=== PATIENT | female | born 1995 | race Caucasian/White ===

== ENCOUNTER 2019-07-14 19:41 | Emergency (ER) | payer BC ==
[2019-07-14 20:19] LABS: Urine Blood 2+ (NEG); Urine Glucose NEGATIVE (NEG); Urine Protein NEGATIVE (NEG)
[2019-07-14 20:30] LABS: Absolute Lymphocytes (CBC) 3.5 K/uL (0.7-4.9); Basophils % 0.8 % (0-1.3); Lymphocytes % 34.2 % (15.3-44.8); MPV 7.6 fL (7.6-11.3)
[2019-07-14 20:49] LABS: BUN Blood Urea Nitrogen 7 mg/dL (7-18); Bicarbonate 25 mmol/L (21-32); Glucose Level 106 mg/dL (74-106); Potassium 3.2 mmol/L (3.5-5.1); Sodium Level 139 mmol/L (136-145)
[2019-07-14 21:05] LABS: HCG, Quantitative 88238 mIU/mL (1-3)
--- NOTE | 2019-07-14 21:48 | ER ---
Nurse's Notes [facility] Name: Kristi Beauchamp Age: 23 yrs Sex: Female : 1995 Arrival Date: 07/14/2019 Time: 19:41 Bed 19 Private MD: Diagnosis: Threatened Presentation: 07/13 19:49 Chief complaint: Patient states: 14 weeks . Started vaginal bleeding today that ll1 was bright red and moderate amount. Has had dark vaginal bleeding int. 2-3 times throughout this . G2, P1. Coronavirus screen: Proceed with normal triage. Patient denies a cough. Patient denies shortness of breath or difficulty breathing. Patient denies measured and/or subjective temperature greater than 100.4F prior to today's visit. Patient denies travel on a cruise ship or to a country the [facility] currently lists as an affected area. Patient denies contact with known and/or suspected case of COVID-19. Ebola Screen: Patient denies travel to an Ebola-affected area in the 21 days before illness onset. Initial Sepsis Screen: Does the patient meet any 2 criteria? HR > 90 bpm. No. Patient's initial sepsis screen is negative. Does the patient have a suspected source of infection? No. Patient's initial sepsis screen is negative. Risk Assessment: Do you want to hurt yourself or someone else? Patient reports no desire to harm self or others. Onset of symptoms was July 13, 2019. 19:49 Method Of Arrival: Ambulatory ll1 19:49 Acuity: HERB 3 ll1 MFTS: 20:05 2, Full Term 1, Living 1, Verified cp Historical: - Allergies: 19:51 Lidocaine; ll1 - PMHx: 19:56 Asthma; - Immunization history:: Adult Immunizations up to date, Flu vaccine is not up to date. - Social history:: Patient uses alcohol, only on a social basis. before she was . Patient/guardian denies using street drugs, tobacco products, Smoking status: Patient denies any tobacco usage or history of. Screenin:53 Abuse screen: Denies threats or abuse. Nutritional screening: No deficits noted. Tuberculosis screening: No symptoms or risk factors identified. Fall Risk None identified. Assessment: 20:05 General: Appears in no apparent distress. Behavior is cooperative, crying. Pain: Denies pain. Neuro: Level of Consciousness is awake, alert, Oriented to person, place, time, situation. Cardiovascular: Heart tones S1 S2 present. Respiratory: Airway is patent Respiratory effort is even, unlabored, Respiratory pattern is Breath sounds are clear. GI: Bowel sounds present X 4 quads. Patient currently denies abdominal pain, diarrhea, vomiting. : No signs and/or symptoms were reported regarding the genitourinary system. Denies burning with urination. EENT: No signs and/or symptoms were reported regarding the EENT system. Derm: No signs and/or symptoms reported regarding the dermatologic system. Musculoskeletal: No signs and/or symptoms reported regarding the musculoskeletal system. 20:33 Reassessment: Pt is approx 15 weeks . She denies any abdominal pain. She states that she has been spotting off and on and today had bright red blood. She denies vomiting or diarrhea. No needs voiced at this time. 21:00 Reassessment: Marketing Analytics Lead in room performing ultrasound at this time. 22:15 Reassessment: Discharge instructions given to Pt. Educated Pt on the importance of pelvic rest and following up with her MFTS.Pt voiced understanding. 22:16 Reassessment: Potassium given to Pt PO at this time.Pt tolerated well. Vital Signs: 19:49 BP 129 / 83; Pulse 102; Resp 18; Temp 98.5; Pulse Ox 100% ; Pain 0/10; ll1 ED Course: 19:41 Patient arrived in ED. ag3 19:43 Dominick Tellez PA is PHCP. cp 19:43 Magdy Avalos MD is Attending Physician. cp 19:46 Suzette Ann, KAILEY is Primary Nurse. 19:51 Triage completed. ll1 19:52 Arm band placed on Patient placed in an exam room, on a stretcher. ll1 19:54 Patient has correct armband on for positive identification. Bed in low position. Call light in reach. 20:15 Inserted saline lock: 20 gauge in right antecubital area, using aseptic technique. 21:40 US Transvaginal Ob In Process Unspecified. EDMS 22:15 IV discontinued, intact, bleeding controlled, No redness/swelling at site. Pressure dressing applied. 22:19 No provider procedures requiring assistance completed. Administered Medications: 21:54 Drug: Potassium Effervescent Tablet 50 mEq Route: PO; 22:22 Follow up: Response: No adverse reaction Outcome: 21:48 Discharge ordered by . ned 22:15 Discharged to home ambulatory. 22:15 Condition: good 22:15 Discharge instructions given to patient, Instructed on discharge instructions, follow up and referral plans. medication usage, Demonstrated understanding of instructions, follow-up care, medications. 22:23 Patient left the ED. Signatures: Dispatcher [employer] EDMS Dominick Tellez PA PA cp Gomez, Alice 3 Suzette Ann, RN RN Tere Alvarez RN RN ll1
--- NOTE | 2019-07-14 21:49 | EDPHYS ---
Physician Documentation [facility] Name: Kristi Beauchamp Age: 23 yrs Sex: Female : 1995 Arrival Date: 07/14/2019 Time: 19:41 Bed 19 Private MD: ED Physician Magdy Avalos HPI: 07/13 20:05 This 23 yrs old Female presents to ER via Ambulatory with complaints of 15 cp Weeks , Vaginal Bleeding. 20:05 The patient presents to the emergency department with vaginal bleeding, that is light. cp 20:05 The estimated gestational age is 15 weeks. course: care: private OB cp physician, Leakage of Fluid: none appreciated. 20:05 Associated signs and symptoms: Pertinent negatives: abdominal pain, dysuria, fever, cp vomiting. RN UROLOGY: 20:05 2, Full Term 1, Living 1, Verified cp Historical: - Allergies: 19:51 Lidocaine; ll1 - PMHx: 19:56 Asthma; ah - Immunization history:: Adult Immunizations up to date, Flu vaccine is not up to date. - Social history:: Patient uses alcohol, only on a social basis. before she was . Patient/guardian denies using street drugs, tobacco products, Smoking status: Patient denies any tobacco usage or history of. ROS: 20:10 Constitutional: Negative for body aches, chills, fever, poor PO intake. cp 20:10 Eyes: Negative for injury, pain, redness, and discharge. cp 20:10 ENT: Negative for drainage from ear(s), ear pain, sore throat, difficulty swallowing, difficulty handling secretions. 20:10 Cardiovascular: Negative for chest pain. 20:10 Respiratory: Negative for cough, shortness of breath, wheezing. 20:10 Abdomen/GI: Negative for abdominal pain, nausea, vomiting, and diarrhea, constipation. 20:10 : Positive for vaginal bleeding, Negative for urinary symptoms. 20:10 All other systems are negative. Exam: 20:15 Constitutional: The patient appears in no acute distress, alert, awake, non-toxic, well cp developed, well nourished. 20:15 Head/Face: Normocephalic, atraumatic. cp 20:15 Eyes: Periorbital structures: appear normal, Conjunctiva: normal, no exudate, no injection, Sclera: no appreciated abnormality, Lids and lashes: appear normal, bilaterally. 20:15 ENT: External ear(s): are unremarkable, Nose: is normal, Posterior pharynx: Airway: no evidence of obstruction, patent. 20:15 Chest/axilla: Inspection: normal. 20:15 Cardiovascular: Rate: tachycardic, Rhythm: regular. 20:15 Respiratory: the patient does not display signs of respiratory distress, Respirations: normal, no use of accessory muscles, no retractions, labored breathing, is not present, Breath sounds: are clear throughout, no decreased breath sounds. 20:15 Abdomen/GI: Inspection: gravid appearance, is noted, Bowel sounds: active, all quadrants, Palpation: abdomen is soft and non-tender, in all quadrants, rebound tenderness, is not appreciated, voluntary guarding, is not appreciated, involuntary guarding, is not appreciated. 20:15 Back: pain, is absent, ROM is normal. Vital Signs: 19:49 BP 129 / 83; Pulse 102; Resp 18; Temp 98.5; Pulse Ox 100% ; Pain 0/10; ll1 MDM: 19:47 Patient medically screened. cp 20:15 Differential diagnosis: STD, threatened Ab, inevitable Ab, complete Ab, ectopic cp . 21:47 Data reviewed: vital signs, nurses notes, lab test result(s), radiologic studies, cp ultrasound. 21:47 Counseling: I had a detailed discussion with the patient and/or guardian regarding: the cp historical points, exam findings, and any diagnostic results supporting the discharge/admit diagnosis, lab results, radiology results, the need for outpatient follow up, an OB/Gyne specialist, to return to the emergency department if symptoms worsen or persist or if there are any questions or concerns that arise at home. Response to treatment: the patient's symptoms have mildly improved after treatment, and as a result, I will discharge patient. ED course: VSS. Discussed results of labs and US. Will discharge to home for continued monitoring. 07/13 19:58 Order name: Quantitative Hcg; Complete Time: 21:12 07/13 21:12 Interpretation: HCGQ [id number]; Reviewed. 07/13 19:58 Order name: Abo/rh Typing; Complete Time: 20:57 07/13 20:57 Interpretation: Reviewed. 07/13 19:58 Order name: Basic Metabolic Panel; Complete Time: 21:12 cp 07/13 21:12 Interpretation: Normal except: K 3.2. cp 07/13 19:58 Order name: CBC with Diff; Complete Time: 20:57 cp 07/13 21:12 Interpretation: Reviewed. cp 07/13 20:10 Order name: Urine Dipstick--Ancillary (enter results); Complete Time: 20:57 mw2 07/13 20:57 Interpretation: Normal except: UBLD 2+. cp 07/13 20:10 Order name: Urine --Ancillary (enter results); Complete Time: 20:57 mw2 07/13 20:57 Interpretation: Reviewed. 07/13 19:58 Order name: Urine Test (obtain specimen); Complete Time: 20:26 cp 07/13 19:58 Order name: IV Saline Lock; Complete Time: 20:26 cp 07/13 19:58 Order name: Labs collected and sent; Complete Time: 20:27 cp 07/13 19:58 Order name: NPO; Complete Time: 20:27 cp 07/13 19:58 Order name: Urine Dipstick-Ancillary (obtain specimen); Complete Time: 20:27 cp 07/13 19:58 Order name: US Transvaginal Ob cp Administered Medications: 21:54 Drug: Potassium Effervescent Tablet 50 mEq Route: PO; 22:22 Follow up: Response: No adverse reaction Disposition: 07/14 19:10 Co-signature as Attending Physician, Magdy Avalos MD. [email or web address] Disposition: 07/14/19 21:48 Discharged to Home. Impression: Threatened . - Condition is Stable. - Discharge Instructions: Threatened Miscarriage, Vaginal Bleeding During , Second Trimester, Pelvic Rest. - Medication Reconciliation Form, Thank You Letter, Antibiotic Education, Prescription Opioid Use form. - Follow up: Private Physician; When: 2 - 3 days; Reason: Recheck today's complaints. - Problem is new. - Symptoms have improved. Signatures: Dispatcher [employer] EDMagdy Oliva MD MD pkl Dominick Tellez PA PA cp Harris, Amy RN RN Tere Jenkins RN RN ll1 Corrections: (The following items were deleted from the chart) 07/13 22:23 21:48 07/14/2019 21:48 Discharged to Home. Impression: Threatened . Condition ah is Stable. Forms are Medication Reconciliation Form, Thank You Letter, Antibiotic Education, Prescription Opioid Use. Follow up: Private Physician; When: 2 - 3 days; Reason: Recheck today's complaints. Problem is new. Symptoms have improved. cp
[2019-07-14] MEDS ORDERED: POTASSIUM 25 MEQ EFFERV TAB ONE (21:55)
[2019-07-14 23:00] VITALS: BP 129/83; TEMP 98.5; O2SAT 100
--- NOTE | 2019-07-15 09:33 | RAD REPORT ---
EXAM DESCRIPTION: US - Transvaginal OB - 07/14/2019 9:40 pm CLINICAL HISTORY: VAGINAL BLEEDING, COMPARISON: Matter Eval Tm 1 dated 05/21/2019 FINDINGS: A single gestation is identified. Heart rate normal. Anatomic assessment is limited at thi s early age. No gross abnormality seen. measurements are as follows: BPD:3.16 Centimeters 15 weeks 6 days HC:12.26 Centimeters 16 weeks 2 days The estimated gestational age (EGA) is 15 weeks 6 days with an HERON of 12/30/2019. Calculated due date is 1 week earlier than estimated by the May 20 study. The placenta is grade 0, anterior in locati on. No low-lying or placenta previa. The amniotic fluid volume is normal. Internal os is closed. Cer vix assessment was limited. Both ovaries are identified and unremarkable. No adnexal abnormalities. Preliminary findings were provided at the time of the study. IMPRESSION: 1. Single gestation with an EGA of 15 weeks 6 days and an HERON of the 12/30/2019. Calcul ated due date is 1 week earlier than seen on the May 20 study 2. Anatomic assessment is limited. No gross abnormality seen. 3. Grade 0, anterior placenta with no low-lying or placenta previa. No abruption, marginal hematoma o r other suspicious placental finding. Internal os appears closed. 4. Amniotic fluid volume is normal.
== END 2019-07-14 22:23 | disposition home or self-care (01) ==
LOC: ER 19:41
DX: O20.0 Threatened abortion (principal); Z3A.15 15 weeks gestation of pregnancy; Z88.4 Allergy status to anesthetic agent
CPT/HCPCS: 36415; 76817; 80048; 81003; 81025; 84702; 85025; 86900; 86901; 99283

== ENCOUNTER 2020-01-02 05:30 | Inpatient (IN) | payer BC ==
[2020-01-01 12:45] LABS: Absolute Lymphocytes (CBC) 2.4 K/uL (0.7-4.9); Basophils % 0.4 % (0-1.3); Hematocrit 37.7 % (36.0-45.0); Lymphocytes % 26.1 % (15.3-44.8); MPV 9.3 fL (7.6-11.3); RBC Red Blood Cell Count 4.12 M/uL (3.86-4.86)
--- NOTE | 2020-01-01 14:28 | PREOPHP ---
Date of Admission: 01/02/2020 History Of Present Illness: Ms. Beauchamp is a 24-year-old female, 2, para 1- 0-0-1, now at 39+ weeks gestation. She will be admitted tomorrow for repeat section seconda ry to prior with cephalopelvic disproportion. She has been followed by me during this preg praveen without significant complications. Past Medical History: Please see record. Family History: Please see record. Review of Systems: She denies recent cough, cold, fever, or chills. No recent nausea or vomiting. No breast knots, lum ps. No bowel or bladder issues. Physical Examination: General: female, in no apparent distress. Neck: Supple without adenopathy or thyromegaly. Lungs: Clear. Cardiac: Regular rate and rhythm without murmurs. Breasts: Not examined. Abdomen: Estimated weight of 8+ pounds. Pelvic: Not performed. Extremities: No cyanosis, clubbing, or edema. heart tones well heard with the Doppler in the lower abdomen. Impression: A 39+ week , prior section, suspected cephalopelvic disproportion. Plan: The patient will undergo repeat section. The risks and benefits were discussed. She has signed operative permit in my presence. MARY/CHAPIS Voice ID: [id number]
[2020-01-02] MEDS ORDERED: Ringers Lactate 1,000 ML IV PRN (05:39)
[2020-01-02] MEDS ORDERED: NA CIT/CITRIC AC 30 ML ORAL UDC PO ONE (05:42)
[2020-01-02] MEDS ORDERED: FAMOTIDINE 20 MG/2 ML VIAL IV ONE (05:44)
[2020-01-02] MEDS ORDERED: Ringers Lactate 1,000 ML IV SCH (06:00)
[2020-01-02] MEDS ORDERED: METOCLOPRAMIDE 10 MG/2mL INJ IV SCH (06:00)
[2020-01-02] MEDS ORDERED: CEFAZOLIN/SWI 2gm 2 GM/20 ML SYR ONE (06:43)
--- NOTE | 2020-01-02 08:17 | P.PN ---
Date of Service: 01/02/20 Patient presented this morning to L&D for repeat and reported she had not felt the baby move through the evening. No fht's could be elicited by doppler, and US revealed no cardiac motion, and oligohydramnios. Dx-Intrauterine demise, possibly secondary to a cord accident secondary to decreased amniotic fluid. Plan- Will proceed with repeat later this am.
[2020-01-02] MEDS ORDERED: FENTANYL CITR 100 MCG/2 ML IV ONE (09:40)
--- NOTE | 2020-01-02 09:45 | RAD REPORT ---
EXAM DESCRIPTION: US - OB Limited - 01/02/2020 6:54 am CLINICAL HISTORY: Confirm FHTs Referring physician at the bedside. COMPARISON: OB Complete dated 08/14/2019 FINDINGS: Limited Ob ultrasound study was performed. heart was located. Thrombus fills the placido mbers of the heart. No cardiac activity identified. IMPRESSION: demise
[2020-01-02] MEDS ORDERED: FENTANYL CITR 100 MCG/2 ML ONE (10:02)
[2020-01-02] MEDS ORDERED: CEFAZOLIN/SWI 1gm 1 GM/10 ML SYR ONE (10:26)
[2020-01-02] MEDS ORDERED: MORPHINE SULFATE/PF 1 MG/ML (10 ML AMP) ONE (10:37)
[2020-01-02] MEDS ORDERED: OXYTOCIN 10 UNIT/ML ML IV ONE (10:37)
[2020-01-02] MEDS ORDERED: LIDOCAINE 1% MPF 5 ML VIAL ONE (10:38)
[2020-01-02] MEDS ORDERED: BUPIVACAINE 0.75% (PF) 2 ML SP ONE (10:38)
[2020-01-02] MEDS ORDERED: ONDANSETRON 4 MG/2 ML VIAL ONE (11:11)
[2020-01-02] MEDS ORDERED: EPHEDRINE SULF 50 MG/ML VIAL ONE (11:11)
[2020-01-02] MEDS ORDERED: METHYLERGONOVINE 0.2MG/ML AMP IM PRN (11:59)
[2020-01-02] MEDS ORDERED: CARBOPROST TROME 250 MCG/ML IM PRN (11:59)
[2020-01-02] MEDS ORDERED: OXYTOCIN/LR 20 UNIT/1,000 ML BAG IV SCH (12:00)
--- NOTE | 2020-01-02 12:03 | P.BOP ---
Preoperative diagnosis: 39+ wk , IUFD, prior Postoperative diagnosis: same Primary procedure: , delivery stillborn male infant Licensed Loan Officer Assistant: Ayo Franz Estimated blood loss: 800 Specimen: placenta Findings: MSAF, coiled cord Anesthesia: spinal Drain(s): Urinary catheter Transferred to: Other ([id number]) Condition: Good
[2020-01-02] MEDS ORDERED: DIPHENHYDRAMINE 50 MG/ML VIAL IV ONE (13:00)
[2020-01-02] MEDS ORDERED: DIPHENHYDRAMINE 50 MG/ML VIAL ONE (13:19)
[2020-01-02] MEDS: KETOROLAC 30 MG/ML INJ IV PRN ×2 (14:20→23:40)
[2020-01-02] MEDS: METHYLERGONOVINE 0.2 MG TAB PO PRN ×2 (17:10→21:03)
[2020-01-02] MEDS: ONDANSETRON 4 MG (ODT) TAB PO PRN (17:15)
[2020-01-02] MEDS ORDERED: DIPHENHYDRAMINE 25 MG TAB/CAP ONE (18:17)
[2020-01-02] MEDS: DIPHENHYDRAMINE 25 MG TAB/CAP PO PRN ×2 (18:20→23:55)
[2020-01-02] MEDS ORDERED: hydrOXYzine HCL 25 MG TAB PO ONE (20:23)
[2020-01-02 20:34] VITALS: BMI 32.8
[2020-01-02] MEDS: ZOLPIDEM TARTRATE 10 MG TABLET PO PRN (20:48)
--- NOTE | 2020-01-02 22:01 | OP ---
Surgeon: Christoph Noriega MD Purification Operator: Purification Operator Surgeon: Mike Franz MD. Anesthesiologist: Dr. Antonio Uriostegui and Randy Harrison CRNA. Preoperative Diagnoses: A 39+ week , prior section, intrauterine demise. Procedures: Spinal block anesthesia, repeat section, delivery of a stillborn male infant. Postoperative Diagnosis: A 39+ week , prior section, intrauterine demise. Description Of Procedure: After a satisfactory level of spinal block anesthesia was obtained, the pa tient was prepped and draped in the usual fashion for abdominal surgery. A Pfannenstiel skin incisio n was made and carried down to the fascia. Fascia was incised with a combination of sharp and blunt dissection. This was from the underlying rectus muscles. These were divided in the midlin e. Peritoneum was incised and the bladder flap was developed. Low transverse uterine incision was m tresaure and a 7-pound 2-ounce male infant was delivered in vertex presentation. Cord was clamped, cut, a nd the was placed in a warmer. Cord blood was obtained. Placenta was manually removed and th e uterus was then exteriorized. The cervix was dilated from above with a ring clamp which was passed from the operative field. The uterus was closed in 2 layers utilizing 0 Vicryl suture in a running nonlocking fashion. Second layer was used to imbricate the first. The uterus was returned to the pe ritoneal cavity which was cleaned of amniotic fluid, debris, and blood clot. The rectus muscles were approximated in midline with simple sutures of 0 Vicryl. The fascia was closed with running sutures of #1 Vicryl from either margin to the middle. Subcutaneous sutures were used to close the skin as was as the subdermal suture and then a subcuticular suture of 4-0 Monocryl. Quantitative blood loss was measured at 736 mL. The patient was taken to recovery room in satisfactory condition. She recei helena 1 g of Ancef for antibiotic prophylaxis Addendum: Only things noted at the time of delivery was significant coiling of the umbilical cord, o ligohydramnios with moderate meconium staining of the amniotic fluid. Infant otherwise looked in goo d condition with no desquamation of skin. Meconium was not old meconium. MARY/CHAPIS Voice ID: [id number] Report ID: [id number]
[2020-01-03 00:22] VITALS: O2SAT 100
[2020-01-03] MEDS: METHYLERGONOVINE 0.2 MG TAB PO PRN ×3 (01:00→15:50)
[2020-01-03 05:25] LABS: Absolute Lymphocytes (CBC) 2.2 K/uL (0.7-4.9); Basophils % 0.5 % (0-1.3); Hematocrit 30.4 % (36.0-45.0); Lymphocytes % 19.3 % (15.3-44.8); MPV 8.5 fL (7.6-11.3); RBC Red Blood Cell Count 3.33 M/uL (3.86-4.86)
--- NOTE | 2020-01-03 07:34 | P.PN ---
Date of Service: 01/03/20 S-No complaints, slept ok O-Afeb, vs stable, po hct 31, abdomen soft A-Satisfactory P-Advance diet, d/c iv and lovett
[2020-01-03] MEDS: Oxycodone HCl/Acetaminophen 1 TAB TAB PO PRN ×3 (08:05→20:10)
[2020-01-03] MEDS: ONDANSETRON 4 MG (ODT) TAB PO PRN (08:10)
[2020-01-03] MEDS: IBUPROFEN 600 MG TAB PO PRN (11:30)
[2020-01-03] MEDS: SIMETHICONE 80 MG TAB PO SCH (20:28)
[2020-01-04] MEDS: IBUPROFEN 600 MG TAB PO PRN ×2 (00:05→08:30)
[2020-01-04] MEDS: Oxycodone HCl/Acetaminophen 1 TAB TAB PO PRN (01:15)
[2020-01-04] MEDS: ZOLPIDEM TARTRATE 10 MG TABLET PO PRN (01:17)
[2020-01-04 08:11] VITALS: BP 140/81; TEMP 99.2
[2020-01-04] MEDS: SIMETHICONE 80 MG TAB PO SCH (08:30)
--- NOTE | 2020-01-04 09:25 | DS ---
Final Hospital Discharge Diagnoses: 1.39+ week . 2.Intrauterine demise with stillbirth. 3.Repeat section. Complications: Intrauterine demise. Procedures: Spinal block anesthesia, repeat section, delivery of stillborn male infant. Hospital Course: The patient is 24-year-old female, 2, para 1-0-0-1, who i s scheduled for repeat section. On the morning of admission, she presented to Labor and [facility]ie with reports of not having felt the baby move through the evening. Intrauterine demise w as documented lack of heart tones and confirmed on ultrasound examination. She underwent repea t section with spinal block anesthesia and delivered a 7 pounds and 5-ounce stillborn male i nfant with meconium-stained amniotic fluid and evidence of oligohydramnios. She was dismissed on the second postoperative day, ambulatory, on a select diet with routine section activity restri ctions with 2 prescriptions, 1 for Tylenol No.3 #15 for pain relief and Ambien 10 mg #10 p.r.n. insom anne. Lab work obtained during this hospital stay included hemoglobin and hematocrit on admission of 13.0 and 37.7, dismissal of 10.6 and 30.4. She had mild atony treated with methargen for slightly heavier bleeding. She had a negative COVID test. She has positive bl ood type. Antibody screen negative. She would be seen back by me in approximately 1 week period of time and to continue taking her iron and vitamins. MARY/CHAPIS Voice ID: [id number] Report ID: [id number]
[2020-01-07 15:59] LABS: HBsAG Nonreactive
== END 2020-01-04 09:45 | disposition home or self-care (01) | DRG 787 ==
LOC: 2ND-WC 05:30
PROVIDERS: ADMIT Specialist; ATTEND Specialist
PROC: 10D00Z1 Extraction of Products of Conception, Low, Open Approach (ICD-10-PCS; principal; 2020-01-02 07:30)
DX: O34.211 Maternal care for low transverse scar from previous cesarean delivery (principal); O41.03X0 Oligohydramnios, third trimester, not applicable or unspecified; O69.89X0 Labor and delivery complicated by other cord complications, not applicable or unspecified; O77.0 Labor and delivery complicated by meconium in amniotic fluid; Z3A.39 39 weeks gestation of pregnancy; Z37.1 Single stillbirth; Z20.828 Contact with and (suspected) exposure to other viral communicable diseases
CPT/HCPCS: 36415; 76815; 85025; 86850; 86900; 86901; 87340; 88307; J0690; J1200; J2405; J2590; J2765; J3010; J7120; U0003